=== PATIENT | male | born 1980 | race Caucasian/White ===

== ENCOUNTER 2021-08-20 09:27 | Emergency (ER) | payer BC ==
[~2021-08-20] VITALS: Ht 177.8 cm; Wt 95.5 kg
[~2021-08-20 09:27] MED LIST: NKDA
[2021-08-20 09:47] VITALS: TEMP 98.9
[2021-08-20 10:59] LABS: BASO % 0.3 % (0.0-2.0); GRAN # 2.9 K/mm3 (1.4-6.5); GRAN % 76.5 % (42.2-75.2); HEMATOCRIT 42.3 % (42.0-52.0); HEMOGLOBIN 14.8 g/dl (13.5-18.0); LYMPH # 0.5 K/mm3 (1.2-3.4); LYMPH % 12.4 % (20.0-51.0); MEAN CELL VOLUME 81 fl (80.0-100.0); MEAN CORPUSCULAR HEMOGLOBIN 28 pg (27.0-31.0); MEAN CORPUSCULAR HGB CONC 35 g/dl (33.0-37.0); MEAN PLATELET VOLUME 10.2 fl (7.4-10.4); MONO # 0.4 K/mm3 (0.1-0.6); PLATELET COUNT 91 K/mm3 (130-400); RED BLOOD COUNT 5.24 M/mm3 (4.20-5.60); REDCELL DISTRIBUTION WIDTH-CV 11.7 % (11.5-14.5)
[2021-08-20 11:22] LABS: ALBUMIN 3.5 gm/dL (3.5-5.0); BILIRUBIN,TOTAL 0.5 mg/dL (0.2-1.2); CALCIUM 8.3 mg/dL (8.4-10.2); CREATININE, serum 1.19 mg/dL (0.72-1.25); POTASSIUM 3.4 mmol/L (3.5-4.5); TOTAL PROTEIN 6.8 gm/dL (6.2-8.1)
[2021-08-20 14:00] VITALS: BP 115/85; PULSE 92
[2021-08-20] MEDS ORDERED: TESSALON PERLE200 MG PO (14:33)
== END 2021-08-20 14:33 | disposition home or self-care (01) ==
LOC: COL.ER 09:27
PROVIDERS: Emergency Medicine
DX: U07.1 COVID-19 (principal); E87.6 Hypokalemia
CPT/HCPCS: J1885; J7030; M0245